=== PATIENT | female | born 1990 | race Caucasian/White ===

== ENCOUNTER 2018-03-25 12:38 | Emergency (ER) | payer OTHER ==
[~2018-03-25] VITALS: Ht 172.7 cm; Wt 121.6 kg
[2018-03-25] MEDS ORDERED: CLARITIN10 MG PO (12:58)
[2018-03-25] MEDS ORDERED: FLONASE 0.05%50 MCG NASAL (12:58)
[2018-03-25] MEDS ORDERED: PROAIR HFA8.5 GM INH (13:06)
[2018-03-25] MEDS ORDERED: PROZAC20 MG PO (13:14)
[2018-03-25] MEDS ORDERED: VITAMIN D1000 UNI1 PO (13:14)
[2018-03-25] MEDS ORDERED: VITAFOL-OB+DHA1 EACH PO (13:14)
[2018-03-25] MEDS ORDERED: XANAX 0.5 MG0.5 MG PO (13:15)
[2018-03-25 13:43] VITALS: BP 133/81
== END 2018-03-25 13:35 | disposition home or self-care (01) ==
LOC: ER 12:38
DX: O99.511 Diseases of the respiratory system complicating pregnancy, first trimester (principal); J30.9 Allergic rhinitis, unspecified; J06.9 Acute upper respiratory infection, unspecified; Z88.7 Allergy status to serum and vaccine; Z3A.01 Less than 8 weeks gestation of pregnancy